=== PATIENT | female | born 1970 | race Caucasian/White ===

== ENCOUNTER 2016-04-15 14:08 | Inpatient (IN) | payer OTHER ==
[2016-04-15] VITALS (9 sets, daily range): BP systolic 134–154; BP diastolic 74–91; PULSE 77–110; RESP 22–24; TEMP 97.9–98.7; O2SAT 96–99
[~2016-04-15] VITALS: Ht 157.5 cm; Wt 130.7 kg
--- NOTE | 2016-04-15 14:32 | PD ---
HPI Chief Complaint: sob Time Seen by Provider: 14:32 Travel History International Travel<30 days: No Contact w/Intl Traveler<30days: No Traveled to known affect area: No History of Present Illness HPI 45 year-old female history of hypertension followed by Dr. Arias and Dr. Kendrick, presents to emergency department for evaluation of shortness of breath persisting over the last 2 months, worsening of the last couple weeks. Patient was seen and evaluated with Dr. Kendrick's office yesterday. Echocardiogram was complete. He sent patient for CT pulmonary angiogram today which showed pulmonary embolus and several second order branches to the left upper and lower lobes. There is a pulmonary embolus bifurcation of right as well. She was called and instructed to come to the emergency department. Patient reports no pain. States that the shortness of breath has been worsening. She denies any cough or chest congestion. No recent illnesses, fever, or chills. Patient states that she does travel frequently for work. She was on lisinopril and thought that maybe this is causing her shortness of breath since stopped and was started on but she believes losartan but she is uncertain. Patient denies any other symptoms. FORMERLY [facility] Past Medical History Hypertension: Yes Social History Alcohol Use: No Tobacco Use: No Substance Use: No Allergies-Medications (Allergen,Severity, Reaction): Coded Allergies: Penicillin (Verified Allergy, Intermediate, FEVER, HIVES, 04/15/16) Review of Systems Except as stated in HPI: all other systems reviewed are Neg Physical Exam Narrative GENERAL: Well-nourished female patient, sitting up in bed, in no acute distress SKIN: Warm and dry. HEAD: Atraumatic. Normocephalic. EYES: Pupils equal and round. No scleral icterus. No injection or drainage. Patient does have some drooping of the right eye, this is due to previous surgery ENT: No nasal bleeding or discharge. Mucous membranes pink and moist. NECK: Trachea midline. No JVD. CARDIOVASCULAR: Regular rate and rhythm. No murmur appreciated. RESPIRATORY: No accessory muscle use. Shallow but unlabored respirations. Diminished likely due to inspiratory effort. Breath sounds equal bilaterally. GASTROINTESTINAL: Abdomen soft, non-tender, nondistended. Hepatic and splenic margins not palpable. MUSCULOSKELETAL: No obvious deformities. No clubbing. No cyanosis. No edema. NEUROLOGICAL: Awake and alert. No obvious cranial nerve deficits. Motor grossly within normal limits. Normal speech. PSYCHIATRIC: Appropriate mood and affect; insight and judgment normal. Data Data Last Documented VS Vital Signs Date Time Temp Pulse Resp B/P Pulse Ox O2 Delivery O2 Flow Rate FiO2 04/15/16 15:12 22 99 Room Air 04/15/16 15:06 98.7 96 134/89 Orders Electrocardiogram (04/15/16 14:32) Basic Metabolic Panel (Bmp) (04/15/16 14:32) Complete Blood Count With Diff (04/15/16 14:32) Magnesium (Mg) (04/15/16 14:32) Prothrombin Time / Inr (Pt) (04/15/16 14:32) Act Partial Throm Time (Ptt) (04/15/16 14:32) Ecg Monitoring (04/15/16 14:32) Bilateral Bp Monitoring (04/15/16 14:32) Iv Access Insert/Monitor (04/15/16 14:32) Oximetry (04/15/16 14:32) Oxygen Administration (04/15/16 14:32) Us Leg Venous Doppler Bilat (04/15/16 ) Admit Order (Ed Use Only) (04/15/16 17:08) Labs Laboratory Tests Test 04/15/16 14:50 White Blood Count 9.6 TH/MM3 Red Blood Count 5.12 MIL/MM3 Hemoglobin 13.7 GM/DL Hematocrit 41.8 % Mean Corpuscular Volume 81.6 FL Mean Corpuscular Hemoglobin 26.7 PG Mean Corpuscular Hemoglobin 32.7 % Concent Red Cell Distribution Width 14.2 % Platelet Count 324 TH/MM3 Mean Platelet Volume 7.9 FL Neutrophils (%) (Auto) 70.5 % Lymphocytes (%) (Auto) 23.7 % Monocytes (%) (Auto) 3.7 % Eosinophils (%) (Auto) 1.3 % Basophils (%) (Auto) 0.8 % Neutrophils # (Auto) 6.8 TH/MM3 Lymphocytes # (Auto) 2.3 TH/MM3 Monocytes # (Auto) 0.4 TH/MM3 Eosinophils # (Auto) 0.1 TH/MM3 Basophils # (Auto) 0.1 TH/MM3 CBC Comment DIFF FINAL Differential Comment Prothrombin Time 10.7 SEC Prothromb Time International 1.0 RATIO Ratio Activated Partial 23.9 SEC Thromboplast Time Sodium Level 140 MEQ/L Potassium Level 4.0 MEQ/L Chloride Level 107 MEQ/L Carbon Dioxide Level 23.4 MEQ/L Anion Gap 10 MEQ/L Blood Urea Nitrogen 12 MG/DL Creatinine 1.27 MG/DL Estimat Glomerular Filtration 46 ML/MIN Rate Random Glucose 96 MG/DL Calcium Level 8.9 MG/DL Magnesium Level 2.0 MG/DL MDM Medical Decision Making Medical Screen Exam Complete: Yes Emergency Medical Condition: Yes Medical Record Reviewed: Yes Differential Diagnosis PE versus CHF versus pneumonia versus bronchospasm versus asthma Narrative Course 45 year-old female presents to emergency department for evaluation of diagnosed pulmonary embolus outpatient at [facility] today. Patient appears overall well. She does have shallow respirations however these are unlabored. CBC and bMP appear without acute concern. Coag profile was also within normal limits. Patient's vital signs are stable. She remained stable and without pain. I discussed the patient with Dr. German primary care provider on-call for Dr. Juana lott. I discussed the patient with Dr. Davis, patient will be admitted to his service. Diagnosis Primary Impression: Pulmonary emboli Qualified Code: I26.99 - Other acute pulmonary embolism without acute cor pulmonale Additional Impressions: Shortness of breath Hypertension Qualified Code: I10 - Essential hypertension Admitting Information Admitting Physician Requests: Admit Condition: Stable Quintana,Nurys VARGAS Apr 15, 2016 14:32
[2016-04-15 15:01] LABS: AUTOMATED NEUTROPHIL # 6.8 TH/MM3 (1.8-7.7); BASOPHIL # 0.1 TH/MM3 (0-0.2); BASOPHIL % 0.8 % (0.0-2.0); EOSINOPHIL # 0.1 TH/MM3 (0-0.4); EOSINOPHIL % 1.3 % (0.0-4.0); HEMATOCRIT 41.8 % (35.0-46.0); HEMO FLAGS DIFF FINAL; LYMPH % 23.7 % (9.0-44.0); LYMPHOCYTE # 2.3 TH/MM3 (1.0-4.8); MEAN CELL VOLUME 81.6 FL (80.0-100.0); MEAN CORPUSCULAR HEMOGLOBIN 26.7 PG (27.0-34.0); MEAN CORPUSCULAR HGB CONC 32.7 % (32.0-36.0); MONO % 3.7 % (0.0-8.0); NEUT % 70.5 % (16.0-70.0); PLATELET COUNT 324 TH/MM3 (150-450); RED BLOOD COUNT 5.12 MIL/MM3 (4.00-5.30); RED CELL DISTRIBUTION WIDTH 14.2 % (11.6-17.2); WHITE BLOOD COUNT 9.6 TH/MM3 (4.0-11.0)
[2016-04-15 15:13] LABS: APTT (PATIENT) 23.9 SEC (24.3-30.1); PROTHROMBIN TIME - PATIENT 10.7 SEC (9.8-11.6)
[2016-04-15 15:14] LABS: BICARBONATE 23.4 MEQ/L (21.0-32.0)
--- NOTE | 2016-04-15 16:07 | RADRPT ---
EXAM DATE/TIME: 04/15/2016 15:06 [facility] COMPARISON: No previous studies available for comparison. INDICATIONS : Bilateral leg pain. MEDICAL HISTORY : Shortness of breath. Pulmonary embolism. SURGICAL HISTORY : Tonsillectomy. ENCOUNTER: Initial ACUITY: 2 months PAIN SCORE: 0/10 LOCATION: Bilateral legs. TECHNIQUE: Venous ultrasound of the left and right leg was performed from the inguinal ligament to the proximal calf. Real-time, color Doppler and spectral tracing, compression and augmentation techniques were us ed. FINDINGS: RIGHT LEG: There is normal compressibility of the deep venous system from the inguinal region to the proximal ca lf. No echogenic clot is seen in the lumen of the common femoral, femoral, popliteal, and posterior tibial veins. There is a normal response of the venous system to proximal and distal augmentation an d respiration. LEFT LEG: There is normal compressibility of the deep venous system from the inguinal region to the proximal ca lf. No echogenic clot is seen in the lumen of the common femoral, femoral, popliteal, and posterior tibial veins. There is a normal response of the venous system to proximal and distal augmentation an d respiration. CONCLUSION: Normal examination. No evidence of DVT Julius James MD on April 15, 2016 at 16:05 Board Certified Radiologist. This report was verified electronically.
[2016-04-15] MEDS ORDERED: TEMAZEPAM 15 MG CAP PO PRN (18:00)
[2016-04-15] MEDS ORDERED: ENOXAPARIN SODIUM 150 MG/ML SYRINGE SQ ONE (18:00)
[2016-04-15] MEDS: SODIUM CHLOR 0.9% 1000 ML INJ 1,000 ML IV SCH (18:46)
[2016-04-15] MEDS ORDERED: LOSA50TA PO (19:08)
[2016-04-15] MEDS ORDERED: LEVO50TA4 PO (19:08)
--- NOTE | 2016-04-15 19:39 | MH ---
cc: JOSSE PEREZ MD DATE OF ADMISSION 04/15/[address] Tammy Arias CHIEF COMPLAINT The patient was sent to the ER by Dr. Kendrick for the treatment of acute pulmonary embolism. HISTORY OF PRESENT ILLNESS This is very pleasant 45-year-old female with prior history of hypertension who was recently diagnosed with hypothyroidism. She is having difficulty with her breathing off for last 3 or 4 months. Sometime in December she was started on lisinopril and developed shortness of breath with some coughing. She feels awful, tired and weak. After some time, she complained to her doctor, her Lisinopril was stopped and a few weeks later she started feeling better. She was switched to a different blood pressure medication. She was recently diagnosed with hypothyroidism and was started on Synthroid. Approximately three weeks ago, she developed shortness of breath again. She reports dyspnea on exertion, wheezing, occasional cough and weakness. She was sent to finished yarn examiner Dr. Enrrique Kendrick. She had echocardiogram which reportedly was normal. Dr. Kendrick sent her for CTA of the chest. This study was done this morning and it showed pulmonary emboli and several second order branches of left upper and left lower lobe. There was an additional pulmonary embolus seen at the bifurcation of the main pulmonary trunk on the right side as well. No evidence of mediastinal or hilar lymphadenopathy. Small pericardial effusion, otherwise unremarkable. The patient was directed to emergency room. The patient denies fevers, chills, denies chest pain. Denies vomiting. She has good appetite. Denies anorexia. Denies hematemesis. Denies melena or bright red blood per rectum. Denies change in bowel pattern. She was started on Synthroid recently. Since then, she has more energy, apparently has lost some weight also. PAST MEDICAL HISTORY 1. Hypertension. 2. Recently diagnosed hypothyroidism. 3. Obesity. 4. History of acute angle glaucoma involving right eye. PAST SURGICAL HISTORY 1. Multiple laser right eye surgeries followed by development of cataract requiring cataract surgery. 2. Previous vitrectomy on the right eye. 3. History of tonsillectomy. SOCIAL HISTORY The patient denies smoking, drinking or drug abuse. She is and her is in the [employer] so he is stationed somewhere else but she lives at home with her daughter. FAMILY HISTORY Her dad in his 50s. He had aortic aneurysm and hypertension. He was a smoker. Her maternal aunt of breast cancer in her 50s. There is no history of DVT of PE in the family otherwise. REVIEW OF SYSTEMS The patient reports having problem with her plantar fascia and gets pain intermittently. She had an episode of sciatica six months ago that caused pain for quite some time and required some physical therapy. She is currently she is not having any problem with her back. She goes for her routine screening Pap smears and mammograms. Her last mammogram was done about a year ago. Otherwise review of systems negative for 12 systems except what is mentioned above. PHYSICAL EXAMINATION GENERAL: A middle-aged obese female lying in bed not in any acute distress. She is awake, alert. She is oriented x3 VITAL SIGNS: Upon arrival, blood pressure 154/91, pulse of 110, respirations 24, temperature 97.9, O2 saturation 96% on room air HEENT: Normocephalic, atraumatic. Eyes - Extraocular muscles intact. Pupils - right pupil is scarred, left pupil is round. No icterus or significant pallor. ENT: No throat congestion. No oral ulcers or thrush. Ears clear. NECK: Supple. No JVD, no lymphadenopathy, no bruits. CARDIOVASCULAR: S1, S2 audible, irregular rhythm. No murmur or gallop. RESPIRATORY: Distant breath sounds. No crackles or rhonchi appreciated. ABDOMEN: Soft, protuberant, bulky, nontender. Positive bowel sounds. No hepatosplenomegaly EXTREMITIES: No edema, cyanosis or clubbing. Feet are warm to touch. Homans' sign is negative. NEUROLOGIC: She is awake and alert. She is oriented x3. No facial asymmetry, moves all four extremities. LABORATORY DATA Sodium of 140, potassium 4.0. chloride 107, bicarb 23.4, BUN of 12, creatinine 1.27, glucose 96, calcium is 8.9, magnesium 2.0. White count 9.6, hemoglobin 13.7, hematocrit 41.8, platelet count of 324 with MCV of 81.6. PT 10.7, INR 1.0. PTT 23.9. IMAGING STUDIES Venous Doppler bilateral lower extremity was negative for deep vein thrombosis. CT of the chest done this morning at [facility] [place] report mentioned above. ASSESSMENT 1. Acute pulmonary emboli multiple on left side along with the largest embolus at the bifurcation of the main pulmonary trunk on the right, etiology unclear. 2. Renal insufficiency. 3. Hypertension 4. Hypothyroidism, 5. Obesity 6. History of plantar fasciitis. PLAN The patient is admitted to hospital for observation. She was given a dose of Lovenox 1 mg per kg subcu q 12 hours. We will continue that. Give her IV fluid, monitor her renal function, follow CBC and electrolytes. Control blood pressure. Put her Pepcid for GI protection.. The patient should have age based screening for malignancies including mammogram which she already has done and Pap smears. I will consider imaging her abdomen at some point in time. I will hold at this time due to her renal insufficiency. The patient should also be tested for hypercoagulability panel. This could be done as an outpatient, however, as it will not change her management. The patient had unprovoked pulmonary emboli so the etiology of this needs to be established. I have discussed these findings the patient and her mother who is present at the bedside and answered all of their questions. Further management of this patient will be dependent on the hospital course. We have discussed treatment options with the patient and family Coumadin vs newer Novel anticoagulatants were discussed and they want to think about it. I have discussed Risk & benefits of using apixaban or Xarelto versus coumadin. MD RENARD Mata/ /5:59 PM /7:10 PM ARNALDO
[2016-04-15] MEDS: FAMOTIDINE 20 MG TAB PO SCH (20:21)
[2016-04-15] MEDS: METOPROLOL TARTRATE 25 MG TAB PO SCH (20:21)
[2016-04-16] VITALS (24 sets, daily range): BP systolic 111–161; BP diastolic 85–102; PULSE 67–96; RESP 18–20; TEMP 97.5–97.9; O2SAT 94–100
[2016-04-16] MEDS: SODIUM CHLOR 0.9% 1000 ML INJ 1,000 ML IV SCH ×3 (01:00→14:00)
[2016-04-16 06:43] LABS: HEMATOCRIT 36.7 % (35.0-46.0); MEAN CELL VOLUME 80.9 FL (80.0-100.0); MEAN CORPUSCULAR HEMOGLOBIN 26.7 PG (27.0-34.0); MEAN CORPUSCULAR HGB CONC 32.9 % (32.0-36.0); PLATELET COUNT 307 TH/MM3 (150-450); RED BLOOD COUNT 4.53 MIL/MM3 (4.00-5.30); RED CELL DISTRIBUTION WIDTH 14.1 % (11.6-17.2); REVIEW FLAG FINAL; WHITE BLOOD COUNT 6.5 TH/MM3 (4.0-11.0)
[2016-04-16] MEDS: ENOXAPARIN SODIUM 120 MG/0.8 ML SYRINGE SQ SCH ×2 (06:45→17:40)
[2016-04-16 07:17] LABS: BICARBONATE 18.9 MEQ/L (21.0-32.0); POTASSIUM 4.3 MEQ/L (3.5-5.1)
[2016-04-16] MEDS: METOPROLOL TARTRATE 25 MG TAB PO SCH ×2 (09:37→20:30)
[2016-04-16] MEDS: FAMOTIDINE 20 MG TAB PO SCH ×2 (09:37→20:30)
--- NOTE | 2016-04-16 13:35 | EKG ---
Date Performed: 04/15/2016 Time Performed: 15:54:36 PTAGE: 45 years EKG: Sinus rhythm BORDERLINE RIGHT AXIS DEVIATION PATTERN CONSISTENT WITH PULMONARY DISEASE MODERATE T-WAVE ABNORMALIT Y, CONSIDER ANTERIOR ISCHEMIA ABNORMAL ECG NO PREVIOUS TRACING DOCTOR: Carly Noble Interpretating Date/Time 04/16/2016 13:32:07
--- NOTE | 2016-04-16 15:35 | HHI.PR ---
Subjective History of Present Illness Feels well no nausea vomiting No chest pain Denies Shortness of breath No Cough or sputum production No fever or chills Appetite is okay Stubbed her Left pinky toe against the IV pole, sore Offers no other complaints and daughter are at bedside Vitals/Results Intake & Output 04/15/16 04/15/16 04/16/16 14:59 22:59 06:59 Intake Total 1600 ml Output Total 1200 ml Balance 400 ml Intake Oral 500 ml IV Total 1100 ml Output Urine Total 1200 ml Vital Signs Vital Signs Date Time Temp Pulse Resp B/P Pulse Ox O2 Delivery O2 Flow Rate FiO2 04/16/16 14:00 67 04/16/16 13:00 69 04/16/16 12:00 70 04/16/16 11:00 97.7 70 20 121/87 100 04/16/16 11:00 70 04/16/16 10:00 73 04/16/16 09:00 81 04/16/16 08:00 73 04/16/16 07:00 97.5 73 20 142/91 97 04/16/16 07:00 70 04/16/16 06:00 69 04/16/16 05:00 69 04/16/16 04:00 71 04/16/16 03:00 72 04/16/16 02:00 70 04/16/16 01:00 70 04/16/16 00:00 96 04/15/16 23:00 80 04/15/16 22:00 84 04/15/16 21:00 77 04/15/16 20:00 86 04/15/16 19:00 86 04/15/16 18:04 97.9 107 24 135/74 98 Room Air CBC/BMP: 04/16/16 0604 04/16/16 0604 Lab Results Laboratory Tests Test 04/16/16 06:04 White Blood Count 6.5 TH/MM3 Red Blood Count 4.53 MIL/MM3 Hemoglobin 12.1 GM/DL Hematocrit 36.7 % Mean Corpuscular Volume 80.9 FL Mean Corpuscular Hemoglobin 26.7 PG Mean Corpuscular Hemoglobin 32.9 % Concent Red Cell Distribution Width 14.1 % Platelet Count 307 TH/MM3 Mean Platelet Volume 8.3 FL Sodium Level 141 MEQ/L Potassium Level 4.3 MEQ/L Chloride Level 110 MEQ/L Carbon Dioxide Level 18.9 MEQ/L Anion Gap 12 MEQ/L Blood Urea Nitrogen 16 MG/DL Creatinine 1.15 MG/DL Estimat Glomerular Filtration 51 ML/MIN Rate Random Glucose 86 MG/DL Calcium Level 8.1 MG/DL Physical Exam General General Appearance: No Acute Distress, Comfortable, Obese Eyes Eye Exam: Sclera White, Extraocular Movement Intact Ears & Nose Ears & Nose Exam: Nasal Mucosa [place] Throat Throat Exam: Oral Mucosa [place] & Moist Neck Neck Exam: Neck Supple, Trachea Midline Pulmonary Resp Exam: Clear Bilaterally, Breath Sounds Equal Cardiology CV Exam: Regular, Normal Sinus Rhythm Gastrointestinal/Abdomen GI Exam: Soft, Non-Tender, Bowel Sounds Present Integumentary Skin Exam: Warm, Dry Extremeties Extremities Exam: No Edema, Pedal Pulses Palpable Neurologic Neuro Exam: Alert, Awake, Moving All Extremities Psychiatric Psych Exam: Appropriate Responses VTE Prophylaxis VTE Prophylaxis Meds: Lovenox PUD Prophylasis PUD Remarks Pepcid Assessment/Plan Assessment/Plan ASSESSMENT 1. Acute pulmonary emboli multiple on left side along with the largest embolus at the bifurcation of the main pulmonary trunk on the right, etiology unclear. 2. Renal insufficiency. Acute versus chronic ? Etiology 3. Hypertension 4. Hypothyroidism, 5. Obesity 6. History of plantar fasciitis. Plan Continue IV hydration Follow-up BUN/creatinine noted Obtain ultrasound of the kidneys to rule out obstruction or mass lesions Continue subcutaneous Lovenox Discussed treatment options with patient and her , she wants to go on the Newer novel anticoagulants, will change her to Eliquis or xarelto in a.m. Blood pressure control Continue Pepcid A.m. labs Will follow Felice Davis MD Apr 16, 2016 15:35
[2016-04-17] VITALS (16 sets, daily range): BP systolic 116–153; BP diastolic 80–92; PULSE 65–82; RESP 18–20; TEMP 98.1–99.3; O2SAT 92–100
[2016-04-17] MEDS: ENOXAPARIN SODIUM 120 MG/0.8 ML SYRINGE SQ SCH (05:13)
[2016-04-17] MEDS: METOPROLOL TARTRATE 25 MG TAB PO SCH (08:59)
[2016-04-17] MEDS: FAMOTIDINE 20 MG TAB PO SCH (08:59)
[2016-04-17] MEDS: SODIUM CHLOR 0.9% 1000 ML INJ 1,000 ML IV SCH ×2 (09:05)
[2016-04-17 09:19] LABS: BICARBONATE 22.4 MEQ/L (21.0-32.0); POTASSIUM 4.2 MEQ/L (3.5-5.1)
--- NOTE | 2016-04-17 13:00 | HHI.PR ---
Subjective History of Present Illness Feels well/ EAGER TO GO HOME tired of sitting in the hospital no nausea vomiting No chest pain Denies Shortness of breath No Cough or sputum production No fever or chills Appetite is okay Offers no other complaints , mother and daughter are at bedside Vitals/Results Intake & Output 04/16/16 04/16/16 04/17/16 15:00 23:00 07:00 Intake Total 1470 ml 1240 ml Output Total 2400 ml 800 ml Balance -930 ml 440 ml Intake Oral 720 ml 240 ml IV Total 750 ml 1000 ml Output Urine Total 2400 ml 800 ml # Bowel Movements 1 0 Vital Signs Vital Signs Date Time Temp Pulse Resp B/P Pulse Ox O2 Delivery O2 Flow Rate FiO2 04/17/16 12:16 99.3 67 18 153/92 92 04/17/16 10:27 65 04/17/16 08:54 98.3 71 18 116/82 100 04/17/16 07:30 67 04/17/16 06:00 69 04/17/16 05:00 71 04/17/16 04:00 98.2 73 18 124/83 96 04/17/16 04:00 73 04/17/16 03:00 76 04/17/16 02:00 75 04/17/16 01:00 74 04/17/16 00:00 72 04/16/16 23:49 97.9 72 18 161/102 95 04/16/16 23:00 70 04/16/16 22:00 68 04/16/16 21:00 69 04/16/16 20:00 97.8 71 20 134/93 94 04/16/16 20:00 71 04/16/16 18:00 70 04/16/16 17:00 70 04/16/16 16:00 69 04/16/16 15:00 97.7 69 20 111/85 99 04/16/16 15:00 69 04/16/16 14:00 67 CBC/BMP: 04/16/16 0604 04/17/16 0625 Lab Results Laboratory Tests Test 04/17/16 06:25 Sodium Level 140 MEQ/L Potassium Level 4.2 MEQ/L Chloride Level 107 MEQ/L Carbon Dioxide Level 22.4 MEQ/L Anion Gap 11 MEQ/L Blood Urea Nitrogen 16 MG/DL Creatinine 1.10 MG/DL Estimat Glomerular Filtration 54 ML/MIN Rate Random Glucose 91 MG/DL Calcium Level 8.0 MG/DL Physical Exam General General Appearance: No Acute Distress, Comfortable, Obese Eyes Eye Exam: Sclera White, Extraocular Movement Intact Ears & Nose Ears & Nose Exam: Nasal Mucosa [place] Throat Throat Exam: Oral Mucosa [place] & Moist Neck Neck Exam: Neck Supple, Trachea Midline Pulmonary Resp Exam: Clear Bilaterally, Breath Sounds Equal Cardiology CV Exam: Regular, Normal Sinus Rhythm Gastrointestinal/Abdomen GI Exam: Soft, Non-Tender, Bowel Sounds Present Integumentary Skin Exam: Warm, Dry Extremeties Extremities Exam: No Edema, Pedal Pulses Palpable Neurologic Neuro Exam: Alert, Awake, Moving All Extremities Psychiatric Psych Exam: Appropriate Responses VTE Prophylaxis VTE Prophylaxis Meds: Lovenox PUD Prophylasis PUD Remarks Pepcid Assessment/Plan Assessment/Plan ASSESSMENT 1. Acute pulmonary emboli multiple on left side along with the largest embolus at the bifurcation of the main pulmonary trunk on the right, etiology unclear. 2. Renal insufficiency. Acute versus chronic ? Etiology 3. Hypertension 4. Hypothyroidism, 5. Obesity 6. History of plantar fasciitis. Plan d/c IVF Follow-up BUN/creatinine stable Ana ultrasound not done , Tech is N/A over holiday weekend. RN is trying to see if they can get it done today pt wants to start newer Anticoagulant , I rec Mollyqushalini , she agreed d/c subcutaneous Lovenox start PO Eliquis 10 mg bid starting this evening Blood pressure control. will d/c Losartan at this time & start Norvasc 5 mg qd Continue Pepcid d/c home later this afernoon , Renal US can be done as out pt basis I rec screening for age base cancers by pcp & eval for Hypercoagulability d/w PT & family in detail see Orders possible d/c home later this afternoon see MRS f/u pcp\ ADDENDUM 6 pm US kidney done noted ok to d/c home Eliquis 10 mg po bid x 7 days than 5 mg po bid afterwards d/w Felice Wheat MD Apr 17, 2016 13:00
[2016-04-17] MEDS ORDERED: amLODIPine BESYLATE 5 MG TAB PO ONE (14:00)
--- NOTE | 2016-04-17 15:10 | RADRPT ---
EXAM DATE/TIME: 04/16/2016 17:18 [facility] COMPARISON: No previous studies available for comparison. INDICATIONS : Increased BUN and Creatinine. MEDICAL HISTORY : . Hypertension. Thyroid disease. Dyspnea. SURGICAL HISTORY : Tonsillectomy. Cataract removal. Ventrectomy. ENCOUNTER: Subsequent ACUITY: 2 days PAIN SCORE: 0/10 LOCATION: Bilateral flank MEASUREMENTS: RIGHT KIDNEY: 10.0 x 5.3 x 4.3 cm LEFT KIDNEY: 10.6 x 5.2 x 5.2 cm FINDINGS: RIGHT KIDNEY: Renal cortex is normal in thickness and echotexture. No hydronephrosis, stone, or mass. LEFT KIDNEY: Renal cortex is normal in thickness and echotexture. No hydronephrosis, stone, or mass. BLADDER: Within normal limits given the degree of distension. CONCLUSION: Ultrasound appearance of the kidneys and urinary bladder within normal limits. Paco Mares MD on April 17, 2016 at 15:08 Board Certified Radiologist. This report was verified electronically.
[2016-04-17 15:18] LABS: BLOOD, URINE NEG (NEG); GLUCOSE,URINE NEG (NEG); KETONE, URINE NEG (NEG); MUCUS URINE FEW /lpf (OCC); NITRITE,URINE NEG (NEG); PH, URINE 5.5 (5.0-8.5); SQUAMOUS EPITHELIAL CELL URINE <1 /hpf (0-5); URINE COLOR LIGHT-YELLOW (YELLW/STRAW)
[2016-04-17] MEDS ORDERED: METO25TA3 PO (17:59)
[2016-04-17] MEDS ORDERED: APIX5TAB PO ×2 (17:59→18:00)
[2016-04-17] MEDS ORDERED: APIXABAN 5 MG TABLET PO SCH (21:00)
[2016-04-18] MEDS ORDERED: LEVOTHYROXINE SODIUM 50 MCG TAB PO SCH (06:00)
[2016-04-18] MEDS ORDERED: amLODIPine BESYLATE 5 MG TAB PO SCH (09:00)
--- NOTE | 2016-04-22 18:27 | HHI.DS ---
Discharge Summary Admission Date Apr 16, 2016 at 23:14 Discharge Date: Apr 17, 2016 Admitting Diagnosis SOB; PE; BENNETT, LLL, bifurcation of R main pulmonary trunk (1) Pulmonary emboli (2) Shortness of breath (3) Hypertension (4) Renal insufficiency (5) Obesity (6) Hypothyroid Imaging Last Impressions Renal Ultrasound 04/17/16 0000 Signed Impressions: Service Date/Time: Saturday, April 16, 2016 17:18 - CONCLUSION: Ultrasound appearance of the kidneys and urinary bladder within normal limits. Paco Mares MD Lower Extremity Ultrasound 04/15/16 0000 Signed Impressions: Service Date/Time: Friday, April 15, 2016 15:06 - CONCLUSION: Normal examination. No evidence of DVT Julius James MD Hospital Course This is very pleasant 45-year-old female with prior history of hypertension who was recently diagnosed with hypothyroidism. She is having difficulty with her breathing off for last 3 or 4 months. Sometime in December she was started on lisinopril and developed shortness of breath with some coughing. She felt awful, tired and weak. After some time, she complained to her doctor, her Lisinopril was stopped and a few weeks later she started feeling better. She was switched to a different blood pressure medication. She was recently diagnosed with hypothyroidism and was started on Synthroid. Approximately three weeks ago, she developed shortness of breath again. She reported dyspnea on exertion, wheezing, occasional cough and weakness. She was sent to beauty culturist apprentice Dr. Enrrique Kendrick. She had echocardiogram which reportedly was normal. Dr. Kendrick sent her for CTA of the chest. This study was done and it showed pulmonary emboli and several second emboli in the branches of left upper and left lower lobe. There was an additional pulmonary embolus seen at the bifurcation of the main pulmonary trunk on the right side as well. No evidence of mediastinal or hilar lymphadenopathy. The patient was directed to emergency room. The patient denied fevers, chills, denies chest pain. Denied vomiting. She has good appetite. Denied anorexia. Denied hematemesis. Denied melena or bright red blood per rectum. Denied change in bowel pattern. She was started on Synthroid recently. Since then, she has more energy, apparently has lost some weight also. She was admitted for: 1. Acute pulmonary emboli multiple on left side along with the largest embolus at the bifurcation of the main pulmonary trunk on the right, etiology unclear. 2. Renal insufficiency. 3. Hypertension 4. Hypothyroidism, 5. Obesity 6. History of plantar fasciitis. During the course of the hospitalization, the following to place: The patient was admitted to hospital for observation. She was given a dose of Lovenox 1 mg per kg subcu q 12 hours. Was given IVF, monitored her renal function, followed CBC and electrolytes. Controlled blood pressure. Put her Pepcid for GI protection. The patient should also be tested for hypercoagulability panel. This could be done as an outpatient, however, as it will not change her management. The patient had unprovoked pulmonary emboli so the etiology of this needs to be established. Attending discussed these findings the patient and her mother who was present at the bedside and answered all of their questions. Treatment options with the patient and family were discussed in regards to anticoagulation options, were given options of using apixaban or Xarelto versus coumadin. Renal function improved, renal ultrasound did not show any obstruction Patient agreed to going home on your anticoagulant Subcutaneous Lovenox was discontinued,started PO Eliquis 10 mg bid Her losartan was discontinue, was started on Norvasc 5 mg qd Recommended that she follow up with outpatient for screening for age base cancers, and follow-up for hypercoagulability Patient was stable, no shortness of breath She was instructed to continue Eliquis 10 mg po bid x 7 days than 5 mg po bid afterwards Patient discharged home in stable condition Pt Condition on Discharge: Stable Discharge Disposition: Discharge Home Discharge Instructions DIET: Follow Instructions for: Heart Healthy Diet Fluid Restrictions: NONE Activities you can perform: Weight Bearing as Elena Other Activity Instructions: ELIQUIS 10 MG PO BID X 7 DAYS THAN START 5 MG PO BID Follow up Referrals: PCP Follow-up - 1 Week New Medications: Apixaban (Eliquis) 5 Mg Tab 5 MG PO BID Blood Clot Prevention #60 Ref 0 TAB Apixaban (Eliquis) 5 Mg Tab 10 MG PO BID PE #14 TAB Metoprolol Tartrate (Metoprolol Tartrate) 25 Mg Tab 25 MG PO Q12HR HTN #60 TAB Continued Medications: Levothyroxine (Levothyroxine) 50 Mcg Tab 50 MCG PO DAILY Thyroid #30 Ref 0 TAB Discontinued Medications: Losartan (Losartan) 50 Mg Tab 50 MG PO DAILY Blood Pressure Management #30 Ref 0 TAB Luz Narvaez Apr 22, 2016 18:27
== END 2016-04-17 18:39 | disposition home or self-care (01) | DRG 176 ==
LOC: NEPA 14:08 → INTOOBSV 17:13 → NEDA 17:13 → HCIS 19:31 → OBSVTOIN 04-16 23:14
PROVIDERS: ADMIT Specialist; ATTEND Specialist
DX: I26.99 Other pulmonary embolism without acute cor pulmonale (principal); I31.3 Pericardial effusion (noninflammatory); I10 Essential (primary) hypertension; E03.9 Hypothyroidism, unspecified; E66.9 Obesity, unspecified; Z80.3 Family history of malignant neoplasm of breast; N28.9 Disorder of kidney and ureter, unspecified
CPT/HCPCS: 76775; 80048; 81001; 83735; 85025; 85027; 85610; 85730; 93005; 93970; J1650; J7030